=== PATIENT | female | born 2000 | race Caucasian/White ===

== ENCOUNTER 2022-03-30 07:03 | Emergency (ER) | payer OTHER, SELFPAY ==
[2022-03-30 07:04] VITALS: BP 109/61; PULSE 70; RESP 18; TEMP 36; O2SAT 100; BMI 20.9
[2022-03-30] MEDS: Ondansetron 4 MG/2 ML Vial IV (07:41)
--- NOTE | 2022-03-30 07:41 | EX.ED.DYSGE1 ---
HPI History of Present Illness Chief Complaint: Flank Pain Informant: patient and spouse/S.O. Narrative Narrative: 21-year-old female G1, P0 at approximately 13 weeks presenting with left flank pain. Patient notes that she developed some pain yesterday but that it went away. She notes that he returned today in the same spot which is left flank and left middle quadrant. She notes associated nausea and vomiting. She notes no position of comfort. Nothing seems to make it better or worse. She notes no urinary symptoms. No diarrhea. No fevers. She is worried she may have a kidney stone but she has never had 1. She states that the is confirmed intrauterine based on ultrasound. PFSH PFSH Medical History no medical history Home Medications [id number] 1 mg tablet 1 tab PO DAILY 03/30/22 [History Last Taken Unknown] Allergy/AdvReac Type Severity Reaction Status Date / Time No Known Allergies Allergy Verified 03/22/17 09:35 Social History (Updated 03/30/22 @ 07:[address] Sae Farmer, DO) Smoking Status: Never smoker substance use type: does not use ROS ROS ED Constitutional Constitutional ED: Denies chills or weight loss Eyes Eyes: Denies change in vision or diplopia ENT ENT ED: Denies ear pain, rhinorrhea or sore throat Cardiovascular Cardiovascular: Denies chest pain, orthopnea, palpitations or racing heartbeat Respiratory/Chest Respiratory/Chest: Denies cough, dyspnea or orthopnea Gastrointestinal Gastrointestinal: Reports abdominal pain, nausea and vomiting; Denies diarrhea Genitourinary Genitourinary ED: Denies dysuria, hematuria or urinary frequency Musculoskeletal Musculoskeletal: Reports back pain; Denies arthralgias or myalgias Integumentary Denies abscess or rash Neurologic Neurologic: Denies headache(s) or weakness Psychiatric Psychiatric: Denies anxiety, depression, suicidal ideation or suicidal thoughts Endocrine Endocrinology: Denies polydipsia, polyphagia or polyuria Allergic/Immunologic Allergic/Immunologic ED: Denies mouth swelling, tongue swelling or urticaria EXAM Physical Exam Narrative Exam Narrative: Patient appears uncomfortable. Lying on her right side of the head the foot of the bed. Const Vital Signs: 03/30/22 07:04 03/30/22 07:08 Temperature 96.8 F L Temperature Source Oral Pulse Rate 70 Respiratory Rate 18 Respiratory Pattern Normal Blood Pressure 109/61 Blood Pressure Mean 77 Pulse Ox 100 Oxygen Delivery Method Room Air Positive well nourished and well developed General Appearance ED: well developed HEENT Reports normocephalic, head/scalp atraumatic and moist mucous membranes Eyes PERRL and EOMs intact bilaterally Neck no lymphadenopathy, supple and no JVD Resp normal respiratory effort and clear to auscultation bilaterally Cardio regular rate, regular rhythm and no murmurs GI normal to inspection, nondistended, normoactive bowel sounds and non-tender Palpation: soft Back/Spine no CVA tenderness and normal ROM Extremity normal to inspection General Extremety ED: Negative for edema General Extremity: Negative for edema Neuro oriented x3 and CN's II-XII intact bilaterally Sensorium / Orientation: alert Motor Exam: strength 5/5 throughout Psych mental status grossly normal Mood & Affect: Negative for depressed or tearful Skin no rashes or lesions noted and no wounds MDM MDM MDM Narrative Medical decision making narrative: Basic blood work showed a white count 7.8 hemoglobin 12.7. BMP is negative. Urinalysis 1025 red cells 5-10 white cells 2+ bacteria negative nitrates positive leukocyte Estrace. CT of the abdomen pelvis was negative for ureterolithiasis. Were. Zofran were given and the patient feels improved on repeat examination. I will write for the patient have some Macrobid we will do a urine culture. Recommend CLAIM APPROVER follow-up Lab Data Attestation: I reviewed the patient's lab results. Labs: Laboratory Results - last 24 hr 03/30/22 03/30/22 03/30/22 07:30 07:30 08:20 WBC 7.8 RBC 4.10 L Hgb 12.7 Hct 37.8 MCV 92.2 MCH 31.0 MCHC 33.6 RDW Std Deviation 41.5 RDW Coeff of Mariano 12.6 Plt Count 246 MPV 10.3 Immature Gran % (Auto) 0.300 Neut % (Auto) 62.7 Lymph % (Auto) 29.7 Greene % (Auto) 5.9 Eos % (Auto) 1.3 Baso % (Auto) 0.1 Absolute Neuts (auto) 4.9 Absolute Lymphs (auto) 2.31 Nucleated RBC % 0 Sodium 138 Potassium 3.6 Chloride 108 H Carbon Dioxide 22.0 Anion Gap 8 BUN 6 L Creatinine 0.61 Estim Creat Clear Calc 114.41 Est GFR (MDRD) Af Amer 157 Est GFR (MDRD) Non-Af 130 BUN/Creatinine Ratio 9.9 L Glucose 105 Calcium 9.1 Urine Color Yellow Urine Clarity Clear Urine pH 6.5 Ur Specific Cardwell 1.020 Urine Protein 15 H Urine Glucose (UA) Normal Urine Ketones 5 H Urine Occult Blood 250 H Urine Nitrite Negative Urine Bilirubin Negative Urine Urobilinogen Normal Ur Leukocyte Esterase 25 H Urine RBC 10-25 SEEN Urine WBC 5-10 SEEN Ur Squamous Epith Cells 0-5 SEEN Urine Bacteria 2+ Urine Mucus 0 SEEN Radiography Diagnostic Testing: Clinical Impression(s) from Imaging Studies Abdomen/Pelvis CT 03/30/22 09:04 IMPRESSION: Right renal stone. No hydronephrosis. Multiple gallstones. No biliary dilatation. Intrauterine gestation. Electronically Signed: Parth Cleveland MD at 9:36 EST , Discharge Plan Triage Chief Complaint: Flank Pain ED Provider: Sae Farmer Dx/Rx/DC Orders Prescriptions: No Action 1 mg Tablet 1 tab PO DAILY Primary Care Provider: Sheila Tejada Referrals: Sheila Tejada MD [Primary Care Provider] -
[2022-03-30] MEDS: Morphine 4 MG/ML Syringe IV (07:42)
[2022-03-30 07:54] LABS: Absolute Lymphocyte Count 2.31 X10^3/uL (0.83-4.51); Absolute Neutrophil Count 4.9 X10^3/uL (2.0-7.7); Basophil# 0.01 X10^3/uL; Basophil% 0.1 % (0-1); Eosinophils% 1.3 % (0-5); Hematocrit 37.8 % (37-47); Hemoglobin 12.7 g/dL (12.0-15.0); Lymphocyte # 2.31 X10^3/ul (0.83-4.51); Lymphocyte % 29.7 % (19-41); Mean Corp Hgb Conc 33.6 g/dL (32-36); Mean Corpuscular Volume 92.2 fL (81-99); Mean Platelet Vol. 10.3 fl (6.2-12.0); Monocyte# 0.46 X10^3/uL; Monocyte% 5.9 % (0-10); NRBC Flagged by Analyzer 0 % (0-5); Neutrophil # 4.88 X10^3/uL (2.7-7.7); Neutrophil % 62.7 % (47-70); Platelet Count 246 K/mm3 (150-450); RBC Distribution Width CV 12.6 % (11.6-14.6); RBC Distribution Width SD 41.5 fl (35.1-43.9); White Blood Count 7.8 K/mm3 (4.4-11.0)
[2022-03-30 08:08] LABS: Anion Gap 8 (5-15); BUN 6 mg/dL (7-18); BUN/Creat Ratio 9.9 RATIO (10-20); Calcium,Total 9.1 mg/dL (8.5-10.1); Chloride 108 mmol/L (98-107); Creatinine, Serum 0.61 mg/dL (0.55-1.02); EST Glomerular Filtration Rate 130 mL/min (>60); Est Glom Filt Rate - Afr Amer 157 mL/min (>60); Estimated Creatinine Clearance 114.41 ml/min; Glucose 105 mg/dL (74-106); Potassium 3.6 mmol/L (3.5-5.1); Sodium Level 138 mmol/L (136-145)
[2022-03-30 08:26] LABS: Mucous, Urine 0 SEEN /hpf (<or=2+)
[2022-03-30 08:28] LABS: Color, Urine Yellow (Yellow); Glucose, Dipstick Normal (Normal); Ketone-Dipstick 5 mg/dl (Negative); Leukocyte Esterase-Dipstick 25 /ul (Negative); Nitrite-Dipstick Negative (Negative); Occult Blood-Urine 250 /ul (Negative); Protein-Dipstick 15 mg/dl (Negative); Urine Bilirubin Dipstick Negative (Negative); Urine Clarity Clear (Clear); Urine Urobilinogen Normal (Normal); Urine pH 6.5 (5.0 - 8.0)
[2022-03-30 08:35] LABS: Bacteria 2+ /hpf (None Seen); Red Blood Cells-Urine 10-25 SEEN /hpf (0-5); Squamous Epithelial Cells - UA 0-5 SEEN /hpf (5-10); White Blood Cells 5-10 SEEN /hpf (0-5)
--- NOTE | 2022-03-30 09:04 | CT_ITS ---
STUDY: CT ABDOMEN AND PELVIS WITHOUT CONTRAST REASON FOR EXAM: Female, 21 years old. Left flank pain + ?stone RADIATION DOSAGE (If Supplied By Facility): CTDIvol = ( 6.07 ) mGy, DLP = ( 285.21 ) mGycm TECHNIQUE: Transaxial images were obtained from the dome of the diaphragm to the symphysis pubis without oral contrast, and without intravenous contrast. Sagittal and coronal images were reconstructed. Individualized dose optimization techniques were used for this CT. COMPARISON: February 24, 2015 FINDINGS: The visualized lung bases are unremarkable. The visualized portions of the heart are within normal limits. Normal liver. There are multiple gallstones. Normal spleen. Normal pancreas. Normal bilateral adrenal glands. There is 0.2 cm stone of the right kidney. Normal left kidney. Normal visualized stomach. Normal small intestine. Normal colon. The appendix is visualized and appears normal. Normal abdominal aorta. Normal inferior vena cava. Normal retroperitoneum. Normal urinary bladder. There is intrauterine gestation. There is trace free fluid in the pelvis. There are small pelvic calcifications compatible with phleboliths. Normal abdominal wall. Normal osseous structures. CT/Abdomen/Pelvis without Cont IMPRESSION: Right renal stone. No hydronephrosis. Multiple gallstones. No biliary dilatation. Intrauterine gestation. Electronically Signed: Parth Cleveland MD at 9:36 EST ,
== END 2022-03-30 10:43 | disposition home or self-care (01) ==
PROVIDERS: Emergency Provider Emergency Medicine; PCP Pediatrics; Visit Provider Emergency Medicine
DX: O26.891 Other specified pregnancy related conditions, first trimester (principal); O21.9 Vomiting of pregnancy, unspecified; R10.9 Unspecified abdominal pain; Z3A.13 13 weeks gestation of pregnancy
CPT/HCPCS: 74176; 80048; 81001; 85025; 87086; 96374; 96375; 99283; A4216; J2405

== ENCOUNTER 2022-09-18 19:05 | Inpatient (IN) | payer OTHER, SELFPAY ==
[2022-09-18 19:30] VITALS: BMI 26.2
[2022-09-18 20:26] VITALS: TEMP 37.4
[2022-09-18 20:27] VITALS: BP 105/58; PULSE 90; O2SAT 98
[2022-09-18] MEDS: Lactated Ringers 1,000 ML 100 ML IV (20:30)
[2022-09-18 20:46] LABS: Absolute Lymphocyte Count 1.69 X10^3/uL (0.83-4.51); Absolute Neutrophil Count 4.6 X10^3/uL (2.0-7.7); Basophil# 0.02 X10^3/uL; Basophil% 0.3 % (0-1); Eosinophil# 0.11 X10^3/uL; Eosinophils% 1.6 % (0-5); Hematocrit 31.4 % (37-47); Hemoglobin 10.1 g/dL (12.0-15.0); Lymphocyte # 1.69 X10^3/ul (0.83-4.51); Lymphocyte % 23.8 % (19-41); Mean Corp Hgb Conc 32.2 g/dL (32-36); Mean Corpuscular Hgb 29.9 pg (27.0-32.0); Mean Corpuscular Volume 92.9 fL (81-99); Mean Platelet Vol. 11.7 fl (6.2-12.0); Monocyte# 0.64 X10^3/uL; NRBC Flagged by Analyzer 0 % (0-5); Neutrophil # 4.61 X10^3/uL (2.7-7.7); Platelet Count 160 K/mm3 (150-450); RBC Distribution Width CV 12.8 % (11.6-14.6); RBC Distribution Width SD 43.7 fl (35.1-43.9); Red Blood Count 3.38 M/mm3 (4.2-5.4); White Blood Count 7.1 K/mm3 (4.4-11.0)
[2022-09-18] MEDS: miSOPROStol 25 MCG TABLET PO (20:46)
--- NOTE | 2022-09-18 21:24 | PCM.HP.OB ---
HPI - General General Date of Admission: 09/18/22 HPI Narrative ALEXEY PURVIS, is a 22 F at 38.1 weeks gestation who presents for scheduled induction of labor for growth restriction. Maternal Data Information LUCILLE Calculator Estimated Delivery Date Method Current WG Current Estimate 10/01/22 Manual 38w 1d PFSH PFSH Medical History no medical history Home Medications [id number] 1 mg tablet 1 tab PO DAILY Check with primary doctor 03/30/22 [History Last Taken Unknown] Allergy/AdvReac Type Severity Reaction Status Date / Time No Known Allergies Allergy Verified 09/18/22 19:46 Family History Father Cancer Grandfather No problems noted. Grandmother Cancer Grandfather Cancer Surgical History History of surgery Social History Smoking Status: Never smoker substance use type: does not use History Elective abortions Hx Para 0 Spontaneous abortions Hx # Term Pregnancies Ectopic pregnancies Hx # Pregnancies Multiple births # of living children NST FHR Rate Baby A Baseline: 140 Variability:: Moderate Accelerations:: 15 x 15 Decelerations:: None NST Reactive:: Yes FHR Category:: Category I Uterine Activity:: Irritability ROS Eyes Eyes: Denies blurry vision, change in vision or spots in vision ENT HEENT: Denies dizziness or headache(s) Cardiovascular Cardiovascular: Denies abdominal pain, chest pain or dyspnea Respiratory/Chest Respiratory/Chest: Denies cough, dyspnea, shortness of breath at rest or shortness of breath with exertion Gastrointestinal Gastrointestinal: Denies abdominal pain, diarrhea or vomiting Genitourinary Genitourinary: Denies change in urinary stream, difficulty urinating or dysuria Musculoskeletal Musculoskeletal: Reports none Integumentary Integumentary: Denies rash Neurologic Neurologic: Denies dizziness, headache(s), memory loss or weakness Psychiatric Psychiatric: Reports none Vital Signs Vital Signs Vital Signs: 09/18/22 20:27 09/18/22 20:27 09/18/22 20:27 Temperature Temperature Source Pulse Rate 90 Blood Pressure 105/58 L BP Systolic 105 BP Diastolic 58 Pulse Ox 98 09/18/22 20:26 09/18/22 20:26 Temperature 99.3 F H Temperature Source Oral Pulse Rate Blood Pressure BP Systolic BP Diastolic Pulse Ox Weight Weight: 148 lb 0.2 oz Body Mass Index (BMI) 26.2 Physical Exam Const alert, oriented x3 and no apparent distress General Appearance: cooperative Orientation / Consciousness: awake Exam Limitations: no limitations HEENT normocephalic Head and Scalp: normal to inspection Eyes General Eye: normal appearance of both eyes Neck full ROM and no lymphadenopathy Lymph Lymphatic: no lymphadenopathy noted Chest inspection of chest normal Resp normal respiratory effort, normal air movement and clear to auscultation bilaterally Effort and Inspection: able to speak in complete sentences and symmetric chest movement Cardio regular rate and regular rhythm GI normal to inspection, nondistended, normoactive bowel sounds Manual OB Exam: presentation cephalic Back/Spine normal ROM Extremity full ROM and no calf tenderness Skin no rashes or lesions noted General Skin Exam: no breakdown Neuro oriented x3 and CN's II-XII intact bilaterally Psych mental status grossly normal and thought process normal Labs Labs Labs: Blood Type Pending Antibody Screen Pending Hct 31.4 % (37-47) L Hgb 10.1 g/dL (12.0-15.0) L Syphilis Total Ab Pending GBS negative Assessment & Plan (1) affected by growth restriction: COMMENT: EFW 6% (2) 38 weeks gestation of : (3) Primigravida: (4) Exercise-induced asthma: PLAN: Plan Admit to labor and delivery Routine labs Start IV and run fluids per orders GBS negative CE- FT Cytotec 25 mcg PO every 4 hours x 6 doses maximum Anticipate placement of zacarias bulb in AM Dr. Dyson aware of induction and is collaborating physician
[2022-09-18 21:25] LABS: Syphilis Antibodies Non-reactive
[2022-09-19] VITALS (48 sets, daily range): BP systolic 97–177; BP diastolic 50–116; PULSE 66–120; TEMP 36–37.3; O2SAT 98–100
[2022-09-19] MEDS: miSOPROStol 25 MCG TABLET PO ×2 (00:46→04:48)
[2022-09-19] MEDS: Lactated Ringers 1,000 ML 100 ML IV (04:43)
[2022-09-19] MEDS: 0.9% Normal Saline Single 100 ML IV.SOLN. INTRA-UTER (07:10)
--- NOTE | 2022-09-19 07:29 | PCM.PN.BLA ---
Progress Note Patient for induction of labor at 38-2/7 weeks due to intrauterine growth restriction. Risk benefits and alternatives to Ramsey placement for cervical ripening reviewed with the patient, her questions were answered to her satisfaction she desires to proceed. 24 Sinhala Ramsey placed into the internal cervical os over a Ramsey catheter guide in the usual sterile fashion. Cervix was 1/70/-2 and medium consistency and midposition. heart tones are category 1. Contractions are very irregular and patient does not appreciate them. The balloon was inflated to 30 cc and placement over the internal os was confirmed. Patient and fetus tolerated the procedure well. Start Pitocin 4 hours after last Cytotec.
[2022-09-19] MEDS: Ondansetron 4 MG/2 ML Vial IV (08:14)
[2022-09-19] MEDS: Oxytocin 15 Units/NS 250ml 15 UNITS/250 ML IV.SOLN 2 UNITS IV (10:26)
[2022-09-19] MEDS: fentaNYL 100 MCG/2 ML Ampul IV (12:23)
[2022-09-19] MEDS: LACTATED RINGERS 500 ML 999 ML IV (13:31)
[2022-09-19] MEDS: Lactated Ringers 1,000 ML 200 ML IV ×2 (13:55→19:47)
[2022-09-19] MEDS: fentaNYL-bupivacaine (epidural) 100 ML BAG EPIDURAL ×2 (14:02→18:15)
--- NOTE | 2022-09-19 23:46 | EX.PCM.OBRPT ---
Assessment & Plan (1) Vaginal delivery: (2) Lactating mother: Maternal Data Information LUCILLE Calculator Estimated Delivery Date Method Current WG Current Estimate 10/01/22 Manual 38w 2d Vaginal Delivery Maternal Presentation Maternal Presentation: Medically Indicated Induction Type of Induction: Pitocin, Ramsey Bulb and Cytotec Medical Reason for Induction: - (IUGR) Operative Information Date of Procedure: 09/19/22 Pre-Operative Diagnosis: Induction of labor Post-Operative Diagnosis: Surgery / Procedure Performed: Spontaneous Vaginal Delivery Type of Anesthesia: Epidural Estimated Blood Loss: 200ml Time of Delivery: 23:33 Findings Description of Procedure: Progressed to complete with urge to push. Epidural for pain management. of viable female infant over intact perineum. APGARS 8,9 respectively. head delivered with body immediately forthcoming. Placed on maternal abdomen, strong cry. Mouth and nares suctioned for secretions. Pitocin started for active 3rd stage management. Cord doubly clamped and cut by FOB after pulsations ceased, delayed cord clamping. Placenta delivered intact via shelton, 3 vessel cord intact. Perineum inspected and intact. Fundus firm and hemostasis achieved. EBL 200ml. Mom and baby stable, planning to breastfeed. Family bonding well. notified of delivery. Presentation: Vertex and BRIAN Amniotic Membrane Rupture Type: Artificial Amniotic Fluid Description: Clear Placental Delivery Description: Expressed Placenta Disposition: [facility] Cord Vessel Description: 3 Vessels Cord Entanglement: None A Gender: Female (1 minute): 8 (5 minute): 9 Delayed Cord Clamping: Yes Post Vaginal Delivery Medications Given After Delivery: IV Pitocin Episiotomy Description: None Laceration: None Complication Complications: None
[2022-09-19] MEDS: Oxytocin 15 Units/NS 250ml 15 UNITS/250 ML IV.SOLN 83 UNITS IV (23:58)
[2022-09-20] VITALS (13 sets, daily range): BP systolic 93–123; BP diastolic 42–59; PULSE 74–106; RESP 16–18; TEMP 36.3–37.1; O2SAT 96
[2022-09-20] MEDS: Ibuprofen 600 MG Tablet PO ×2 (03:11→16:38)
[2022-09-20 06:34] LABS: Hematocrit 29.7 % (37-47); Hemoglobin 9.7 g/dL (12.0-15.0); Mean Corp Hgb Conc 32.7 g/dL (32-36); Mean Corpuscular Hgb 30.2 pg (27.0-32.0); Mean Corpuscular Volume 92.5 fL (81-99); Mean Platelet Vol. 11.5 fl (6.2-12.0); Platelet Count 150 K/mm3 (150-450); RBC Distribution Width CV 12.7 % (11.6-14.6); RBC Distribution Width SD 43.4 fl (35.1-43.9); Red Blood Count 3.21 M/mm3 (4.2-5.4); White Blood Count 15.6 K/mm3 (4.4-11.0)
--- NOTE | 2022-09-20 12:57 | PN.OBGYN_ITS ---
Subjective Subjective Doing well per patient and nursing staff. Ambulating and taking PO without difficulty. Voiding and passing flatus. Pain controlled. , services for assistance. Denies headache, visual changes, chest pain, shortness of breath, leg pain or increased bleeding. Lochia normal. Objective Data Objective Data Vital Signs: Vital Signs Temp Pulse Resp BP Pulse Ox O2 Del Method 97.7 F L 84 16 93/46 L 99 Room Air 09/20/22 08:01 09/20/22 08:01 09/20/22 08:01 09/20/22 08:01 09/19/22 14:23 09/20/22 08:01 Oxygen Delivery Method Room Air Weight: 148 lb 0.2 oz Body Mass Index (BMI) 26.2 Intake & Output: Intake and Output for Last 24 Hours 09/18/22 09/19/22 09/20/22 23:59 23:59 23:59 Intake Total 4423.33 / 4423.33 250 / 250 Output Total 1100 / 1100 1500 / 1500 Balance 3323.33 / 3323.33 -1250 / -1250 Lab / Micro Data Result Diagrams: 09/20/22 06:24 Labs: Laboratory Results - last 24 hr 09/20/22 06:24: WBC 15.6 H, RBC 3.21 L, Hgb 9.7 L, Hct 29.7 L, MCV 92.5, MCH 30.2, MCHC 32.7, RDW Std Deviation 43.4, RDW Coeff of Mariano 12.7, Plt Count 150, MPV 11.5 ROS Constitutional Constitutional: Reports systems reviewed and no addt'l complaints, except as documented; Denies headache(s) Eyes Eyes: Denies acute decrease in peripheral vision, blurry vision or change in vision ENT HEENT: Reports systems reviewed and no addt'l complaints, except as documented Cardiovascular Cardiovascular: Denies chest pain or dizziness Respiratory/Chest Respiratory/Chest: Denies cough, dyspnea, dyspnea on exertion, shortness of breath at rest or shortness of breath with exertion Gastrointestinal Gastrointestinal: Denies abdominal pain, diarrhea, nausea or vomiting Genitourinary Genitourinary: Denies abdominal discomfort Musculoskeletal Musculoskeletal: Denies limited range of motion Integumentary Integumentary: Reports systems reviewed and no addt'l complaints, except as documented Neurologic Neurologic: Reports systems reviewed and no addt'l complaints, except as documented Psychiatric Psychiatric: Reports systems reviewed and no addt'l complaints, except as docu mented Endocrine Endocrinology: Reports systems reviewed and no addt'l complaints, except as documented Hematologic/Lymphatic Hematologic/Lymphatic: Reports systems reviewed and no addt'l complaints, except as documented Allergic/Immunologic Allergic/Immunologic: Reports systems reviewed and no addt'l complaints, except as documented Physical Exam Const alert and oriented x3 General Appearance: cooperative Orientation / Consciousness: awake, oriented to person, oriented to place and oriented to time Exam Limitations: no limitations HEENT normocephalic Head and Scalp: normal to inspection, normocephalic and atraumatic Face and Sinus: normal facial exam Eyes General Eye: normal appearance of both eyes Neck full ROM Chest Chest: symmetrical chest wall rise Resp normal respiratory effort and normal air movement Auscultation: clear to auscultation bilaterally Cardio regular rate, regular rhythm, S1 normal heart sound, S2 normal heart sound, no murmurs, no rub, no gallops and no clicks GI normal to inspection, nondistended, normoactive bowel sounds and non-tender appearance of the vagina normal Bladder / Kidney Exam: no CVA tenderness Back/Spine normal ROM Extremity normal to inspection and full ROM Skin no rashes or lesions noted Neuro oriented x3, CN's II-XII intact bilaterally and moves all extremities Sensorium / Orientation: awake, alert and oriented to person Motor Exam: clonus absent Deep Tendon Reflexes: Rt Patellar (L4): 2+ and Lt Patellar (L4): 2+ Assessment & Plan (1) Lactating mother: (2) Vaginal delivery: PLAN: Plan 1) Routine PP care, PPD#1 2) Vitals stable 3) Hgb stable, asymptomatic 4) Pain controlled 5) D/C home tomorrow 6) Follow up in 2 weeks and 6 weeks
--- NOTE | 2022-09-20 12:58 | PCM.DC.SUM ---
Providers Date of Admission: 09/18/22 Reason For Visit: VAGINAL DELILVERY Diagnosis Discharge Diagnosis (1) Lactating mother: Status: Acute Code(s): Z39.1 - Encounter for care and examination of lactating mother (2) Vaginal delivery: Status: Acute Code(s): O80 - Encounter for full-term uncomplicated delivery Plan 1) Routine PP care, PPD#1 2) Vitals stable 3) Hgb stable, asymptomatic 4) Pain controlled 5) D/C home today 6) Follow up in 2 weeks and 6 weeks Medications at Discharge Home Medications [id number] 1 mg tablet 1 tab PO DAILY Check with primary doctor 03/30/22 acetaminophen 500 mg tablet 1,000 mg PO Q6H PRN PRN Pain 1-10 Or Fever #0 tabs 09/21/22 ibuprofen 600 mg tablet 600 mg PO Q6H PRN PRN Pain Score 1-3 #0 tabs 09/21/22 Weight / BMI Weight Weight: 148 lb 0.2 oz Body Mass Index (BMI) 26.2 ABG / Lab / Microbiology Data Result Diagrams: 09/20/22 06:24 Laboratory: Laboratory Results - last 24 hr 09/20/22 06:24: WBC 15.6 H, RBC 3.21 L, Hgb 9.7 L, Hct 29.7 L, MCV 92.5, MCH 30.2, MCHC 32.7, RDW Std Deviation 43.4, RDW Coeff of Mariano 12.7, Plt Count 150, MPV 11.5 Meaningful Use Info Meaningful Use Diagnoses (Choose all that apply): None applicable Discharge Plan Admission Admit Date/Time: 09/18/22 19:05 Primary Reason for Your Visit: Vaginal delivery Attending Provider: Luann Kaplan Discharge Orders/Prescriptions Prescriptions: New acetaminophen 500 mg Tablet 1,000 mg PO Q6H PRN PRN (Reason: Pain 1-10 Or Fever) Qty: 0 0RF ibuprofen 600 mg Tablet 600 mg PO Q6H PRN PRN (Reason: Pain Score 1-3) Qty: 0 0RF Continued [id number] 1 mg Tablet 1 tab PO DAILY Referrals / Follow Up: Luann Kaplan CNM [Med Staff - Adv Practice Prof] - (Follow up in 2 weeks for virtual visit and 6 weeks for visit) iLliana Pollard CNM [Med Staff - Adv Practice Prof] - Disposition Disposition (needs filled in before D/C Order can be placed): Home, Self Care
[2022-09-21 03:00] VITALS: BP 111/64; PULSE 78; RESP 16; TEMP 36.5
[2022-09-21] MEDS: Ibuprofen 600 MG Tablet PO (09:09)
[2022-09-21 09:13] VITALS: BP 106/59; PULSE 79; RESP 16; TEMP 36.6
--- NOTE | 2022-09-21 10:44 | PCM.PN.OB ---
Subjective Subjective Doing well per patient and nursing staff. Ambulating and taking PO without difficulty. Voiding and passing flatus. Pain controlled. , services for assistance. Denies headache, visual changes, chest pain, shortness of breath, leg pain or increased bleeding. Lochia normal. Objective Data Objective Data Vital Signs: Vital Signs Temp Pulse Resp BP Pulse Ox O2 Del Method 97.9 F 79 16 106/59 L 96 Room Air 09/21/22 09:13 09/21/22 09:13 09/21/22 09:13 09/21/22 09:13 09/20/22 20:54 09/20/22 20:54 Oxygen Delivery Method Room Air Weight: 148 lb 0.2 oz Body Mass Index (BMI) 26.2 Intake & Output: Intake and Output for Last 24 Hours 09/19/22 09/20/22 09/21/22 23:59 23:59 23:59 Intake Total 4423.33 / 4423.33 250 / 250 Output Total 1100 / 1100 1500 / 1500 Balance 3323.33 / 3323.33 -1250 / -1250 Lab / Micro Data Result Diagrams: 09/20/22 06:24 Physical Exam Const alert and oriented x3 General Appearance: cooperative Orientation / Consciousness: awake, oriented to person, oriented to place and oriented to time Exam Limitations: no limitations HEENT normocephalic Head and Scalp: normal to inspection, normocephalic and atraumatic Face and Sinus: normal facial exam Eyes General Eye: normal appearance of both eyes Neck full ROM Chest Chest: symmetrical chest wall rise Resp normal respiratory effort and normal air movement Auscultation: clear to auscultation bilaterally Cardio regular rate, regular rhythm, S1 normal heart sound, S2 normal heart sound, no murmurs, no rub, no gallops and no clicks GI normal to inspection, nondistended, normoactive bowel sounds and non-tender appearance of the vagina normal Bladder / Kidney Exam: no CVA tenderness Back/Spine normal ROM Extremity normal to inspection and full ROM Skin no rashes or lesions noted Neuro oriented x3, CN's II-XII intact bilaterally and moves all extremities Sensorium / Orientation: awake, alert and oriented to person Motor Exam: clonus absent Deep Tendon Reflexes: Rt Patellar (L4): 2+ and Lt Patellar (L4): 2+ Assessment & Plan (1) Vaginal delivery: (2) Lactating mother: PLAN: Plan 1) PPD #2 2) , assistance from . 3) Vitals stable 4) Pain controlled 5) Follow up in 2 weeks and 6 weeks PP 6) D/C home
[2022-09-21 15:05] VITALS: BP 96/54; PULSE 70; RESP 16; TEMP 36.3
[2022-09-21 19:33] VITALS: BP 115/66; PULSE 72; RESP 16; TEMP 36.8
[2022-09-22 02:10] VITALS: BP 107/55; PULSE 68; RESP 16; TEMP 36.6
[2022-09-22] MEDS: Acetaminophen 500 MG Tablet 1000 MG PO (02:21)
[2022-09-22 08:34] VITALS: BP 106/63; PULSE 67; RESP 16; TEMP 36.3
== END 2022-09-22 11:15 | disposition home or self-care (01) | DRG 807 ==
PROVIDERS: Advanced Practice Midwife; Admitting Provider Advanced Practice Midwife; Referring Provider Advanced Practice Midwife; Visit Provider Advanced Practice Midwife
DX: O36.5930 Maternal care for other known or suspected poor fetal growth, third trimester, not applicable or unspecified (principal); Z37.0 Single live birth; J45.990 Exercise induced bronchospasm; O99.52 Diseases of the respiratory system complicating childbirth; Z3A.38 38 weeks gestation of pregnancy
CPT/HCPCS: 59025; 59050; 85025; 85027; 86780; 86850; 86900; 86901; 99221; J7120; G0378; J2405

== ENCOUNTER 2022-10-29 16:40 | Emergency (ER) | payer OTHER, SELFPAY ==
[2022-10-29 16:42] VITALS: BP 124/78; PULSE 78; RESP 16; TEMP 36.4; O2SAT 98; BMI 22.2
--- NOTE | 2022-10-29 17:22 | EX.ED.DYSGE1 ---
HPI History of Present Illness Chief Complaint: General Illness Informant: patient Onset/Context/Timing Onset: Today Narrative Narrative: Patient presents with breast tenderness and fever. She is currently 6 weeks and is breast-feeding. She states she woke up this morning with fever, body aches, headache, light sensitivity. She reports breast tenderness. She has been able to breast-feed but continues to have tenderness. She reports very minimal if any redness to her breast. She did have a vaginal delivery. No abnormal discharge. She states she still does not have good control of her bladder since the . [facility] Medical History Care and examination of lactating mother Home Medications [id number]-[id number] 1 mg tablet 1 tab PO DAILY Check with primary doctor 03/30/22 [History Last Taken Unknown] amoxicillin 875 mg-potassium clavulanate 125 mg tablet 1 tab PO BID #20 tabs 10/29/22 [Rx Last Taken Unknown] Allergy/AdvReac Type Severity Reaction Status Date / Time No Known Allergies Allergy Verified 09/18/22 19:46 Family History Father Cancer Grandfather No problems noted. Grandmother Cancer Grandfather Cancer Surgical History History of surgery Social History Smoking Status: Never smoker substance use type: does not use ROS ROS ED Constitutional Constitutional ED: Reports fever(s) Eyes Eyes: Reports other Details: Light sensitivity ; Denies discharge from eye(s) ENT ENT ED: Denies discharge from eye(s), rhinorrhea or sore throat Cardiovascular Cardiovascular: Reports other Details: Breast tenderness ; Denies chest pain or palpitations Respiratory/Chest Respiratory/Chest: Denies cough or dyspnea Gastrointestinal Gastrointestinal: Denies abdominal pain, diarrhea, nausea or vomiting Genitourinary Genitourinary ED: Denies dysuria Musculoskeletal Musculoskeletal: Denies back pain or extremity pain Integumentary Denies Abrasions or rash Neurologic Neurologic: Denies headache(s) or weakness Allergic/Immunologic Allergic/Immunologic ED: Denies lip swelling or urticaria EXAM Physical Exam Const Vital Signs: 10/29/22 16:42 10/29/22 17:39 10/29/22 18:00 Temperature 97.6 F L 100.5 F H Temperature Source Temporal Oral Pulse Rate 78 Respiratory Rate 16 Respiratory Effort Normal Non-Labored Respiratory Pattern Normal Blood Pressure 124/78 H Blood Pressure Mean 93 Pulse Ox 98 Oxygen Delivery Method Room Air Positive well nourished and well developed General Appearance ED: well developed HEENT Reports moist mucous membranes Eyes PERRL and EOMs intact bilaterally Neck no lymphadenopathy Neck Narrative: No meningismus. Chest Wall inspection of chest normal Chest Narrative: Breast exam: Mild diffuse tenderness of the right breast. Minimal erythema. Left breast exam reveals minimal to no tenderness and no erythema at this time. Resp normal respiratory effort and clear to auscultation bilaterally Cardio regular rate and regular rhythm GI non-tender Palpation: soft Extremity normal to inspection Neuro oriented x3 and no sensory deficits noted Motor Exam: strength 5/5 throughout Psych mental status grossly normal Skin no rashes or lesions noted MDM MDM MDM Narrative Medical decision making narrative: Temperature was checked orally the time of my exam. Her temperature is 100.2. Patient is given Tylenol. Lab work and cultures obtained. Swab for COVID and influenza ordered. Two-view chest x-ray obtained to evaluate for infiltrate. Lab Data Labs: Laboratory Results - last 24 hr 10/29/22 17:35 WBC 10.0 RBC 4.56 Hgb 13.5 Hct 41.1 MCV 90.1 MCH 29.6 MCHC 32.8 RDW Std Deviation 42.0 RDW Coeff of Mariano 12.6 Plt Count 182 MPV 10.3 Immature Gran % (Auto) 0.200 Neut % (Auto) 84.7 H Lymph % (Auto) 9.3 L [place] % (Auto) 5.4 Eos % (Auto) 0.2 Baso % (Auto) 0.2 Absolute Neuts (auto) 8.5 H Absolute Lymphs (auto) 0.93 Nucleated RBC % 0 Sodium 136 Potassium 3.9 Chloride 105 Carbon Dioxide 25.0 Anion Gap 6 BUN 9 Creatinine 1.00 Estim Creat Clear Calc 72.38 Est GFR (MDRD) Af Amer 88 Est GFR (MDRD) Non-Af 73 BUN/Creatinine Ratio 9.0 L Glucose 102 Calcium 9.3 Urine Color Yellow Urine Clarity Clear Urine pH 8.0 Ur Specific [place] 1.010 Urine Protein Negative Urine Glucose (UA) Normal Urine Ketones Negative Urine Occult Blood Negative Urine Nitrite Negative Urine Bilirubin Negative Urine Urobilinogen Normal Ur Leukocyte Esterase Negative Urine RBC 0 SEEN Urine WBC 0 SEEN Ur Squamous Epith Cells 0 SEEN Urine Bacteria 0 SEEN Urine Mucus 0 SEEN Radiography Diagnostic Testing: Clinical Impression(s) from Imaging Studies Chest X-Ray 10/29/22 17:45 IMPRESSION: Normal x-ray examination of the chest. Electronically Signed: Errol Goldsmith (Brooks), at 18:32 EDT , Treatment and Re-Evaluation :: CBC was normal white count at 10 with 84% neutrophils. Chemistry studies unremarkable. Urinalysis reveals no evidence of infection. Two-view chest x-ray per my interpretation reveals no evidence of infiltrate. Radiology interpretation reviewed and agrees. Swab for COVID and influenza is negative. Patient was given Tylenol here for fever along with IV fluids. At this time she will be treated with Augmentin for mastitis. Return instructions are provided. Discharge Plan Triage Chief Complaint: General Illness ED Provider: Kayce Go Dx/Rx/DC Orders Clinical Impression: Mastitis Instructions: ED Mastitis Prescriptions: New amoxicillin-pot clavulanate 875-125 mg tablet 1 tab PO BID Qty: 20 0RF No Action [id number]-[id number] 1 mg Tablet 1 tab PO DAILY Primary Care Provider: Care Physician,No Primary Referrals: Lilo Oliver MD [Med Staff - Active Staff] - 1 Week Care Physician,No Primary [Primary Care Provider] - Disposition Disposition: Home, Self Care
--- NOTE | 2022-10-29 17:45 | RAD_ITS ---
STUDY: X-RAY CHEST REASON FOR EXAM: Female, 22 years old. fever TECHNIQUE: PA and lateral views of the chest. COMPARISON: None. FINDINGS: The lungs are clear and expanded. There is no demonstrated pleural abnormality. Normal size heart. Normal mediastinum and randee. Normal visualized pulmonary arteries. Normal visualized aortic arch and descending thoracic aorta. Normal visualized thoracic spine. Normal visualized ribs, clavicles, and shoulders. There is no demonstrated abnormality of the visualized soft tissue structures of the upper abdomen. RAD/Chest PA and Lateral IMPRESSION: Normal x-ray examination of the chest. Electronically Signed: Errol Goldsmith ([place]oks), at 18:32 EDT ,
[2022-10-29 17:52] LABS: Bacteria 0 SEEN /hpf (None Seen); Mucous, Urine 0 SEEN /hpf (<or=2+); Red Blood Cells-Urine 0 SEEN /hpf (0-5); Squamous Epithelial Cells - UA 0 SEEN /hpf (5-10); White Blood Cells 0 SEEN /hpf (0-5)
[2022-10-29 17:54] LABS: Absolute Lymphocyte Count 0.93 X10^3/uL (0.83-4.51); Absolute Neutrophil Count 8.5 X10^3/uL (2.0-7.7); Basophil# 0.02 X10^3/uL; Basophil% 0.2 % (0-1); Eosinophil# 0.02 X10^3/uL; Eosinophils% 0.2 % (0-5); Hematocrit 41.1 % (37-47); Hemoglobin 13.5 g/dL (12.0-15.0); Lymphocyte # 0.93 X10^3/ul (0.83-4.51); Lymphocyte % 9.3 % (19-41); Mean Corp Hgb Conc 32.8 g/dL (32-36); Mean Corpuscular Hgb 29.6 pg (27.0-32.0); Mean Corpuscular Volume 90.1 fL (81-99); Mean Platelet Vol. 10.3 fl (6.2-12.0); Monocyte# 0.54 X10^3/uL; Monocyte% 5.4 % (0-10); NRBC Flagged by Analyzer 0 % (0-5); Neutrophil # 8.48 X10^3/uL (2.7-7.7); Neutrophil % 84.7 % (47-70); Platelet Count 182 K/mm3 (150-450); RBC Distribution Width CV 12.6 % (11.6-14.6); Red Blood Count 4.56 M/mm3 (4.2-5.4)
[2022-10-29] MEDS: Acetaminophen 500 MG Tablet 1000 MG PO (17:58)
[2022-10-29] MEDS: 0.9% Normal Saline 1,000 ML 1000 ML IV (17:58)
[2022-10-29 18:00] VITALS: TEMP 38.1
[2022-10-29 18:05] LABS: Color, Urine Yellow (Yellow); Glucose, Dipstick Normal (Normal); Ketone-Dipstick Negative (Negative); Leukocyte Esterase-Dipstick Negative /ul (Negative); Nitrite-Dipstick Negative (Negative); Occult Blood-Urine Negative /ul (Negative); Protein-Dipstick Negative (Negative); Urine Bilirubin Dipstick Negative (Negative); Urine Clarity Clear (Clear); Urine Urobilinogen Normal (Normal)
[2022-10-29 18:09] LABS: Anion Gap 6 (5-15); BUN 9 mg/dL (7-18); Calcium,Total 9.3 mg/dL (8.5-10.1); Chloride 105 mmol/L (98-107); EST Glomerular Filtration Rate 73 mL/min (>60); Est Glom Filt Rate - Afr Amer 88 mL/min (>60); Estimated Creatinine Clearance 72.38 ml/min; Glucose 102 mg/dL (74-106); Potassium 3.9 mmol/L (3.5-5.1); Sodium Level 136 mmol/L (136-145)
[2022-10-29] MEDS: Amox/Clavulanate 875 MG Tablet PO (19:08)
== END 2022-10-29 19:13 | disposition home or self-care (01) ==
PROVIDERS: Emergency Provider Emergency Medicine; Visit Provider Emergency Medicine
DX: N61.0 Mastitis without abscess (principal); R50.9 Fever, unspecified
CPT/HCPCS: 71046; 80048; 81001; 85025; 87040; 87086; 87088; 87428; 96360; 99282; J7030; A4216

== ENCOUNTER 2023-09-13 08:54 | Emergency (ER) | payer OTHER, SELFPAY ==
[2023-09-13 08:54] VITALS: BP 116/75; PULSE 78; RESP 16; TEMP 36.4; O2SAT 100; BMI 21.2
--- NOTE | 2023-09-13 09:14 | EX.ED.VIS.EY ---
HPI History of Present Illness Chief Complaint: Eye Problem Detail of Chief Complaint: Left eye pain Informant: patient Narrative Narrative: Patient presents with left eye pain that started yesterday evening. Patient states that she had worn her contacts for about 40 hours. [place] She took her contacts out and felt like there were razor blades in her eye. She went to urgent care today and was referred to the ER. She denies any trauma to her eye. She complains of photophobia and tearing. [facility] Medical History Care and examination of lactating mother Home Medications [id number]-qnc-Vl-FA 1 mg tablet 1 tab PO DAILY Check with primary doctor 03/30/22 [History Last Taken Unknown] amoxicillin 875 mg-potassium clavulanate 125 mg tablet 1 tab PO BID #20 tabs 10/29/22 [Rx Last Taken Unknown] hydrocodone-acetaminophen 5-325mg 5mg-325mg 1 tab PO Q4H PRN PRN Pain 2 days #10 TABLETS 09/13/23 [Rx Last Taken Unknown] moxifloxacin 0.5 % eye drops 1 drp LEFT EYE .qid 7 days #3 mL 09/13/23 [Rx Last Taken Unknown] Allergy/AdvReac Type Severity Reaction Status Date / Time No Known Allergies Allergy Verified 09/18/22 19:46 Family History Father Cancer Grandfather No problems noted. Grandmother Cancer Grandfather Cancer Surgical History History of surgery Social History Smoking Status: Never smoker substance use type: does not use ROS ROS ED Review of Systems ROS Unobtainable: other Constitutional Constitutional ED: Reports lethargy; Denies chills, fever(s), sweats or weight loss Eyes Eyes: Reports other Details: Left thigh pain and tearing, photophobia ; Denies blurry vision, change in vision or diplopia ENT ENT ED: Denies rhinorrhea or sore throat Cardiovascular Cardiovascular: Denies chest pain, orthopnea or racing heartbeat Respiratory/Chest Respiratory/Chest: Denies cough, dyspnea, dyspnea on exertion, orthopnea or sputum Gastrointestinal Gastrointestinal: Denies abdominal pain, diarrhea, nausea or vomiting Genitourinary Genitourinary ED: Denies dysuria, hematuria or urinary frequency Musculoskeletal Musculoskeletal: Denies arthralgias, back pain, myalgias or neck pain Integumentary Denies abscess, Abrasions or rash Neurologic Neurologic: Denies headache(s) or weakness Psychiatric Psychiatric: Denies anxiety, depression or suicidal thoughts Endocrine Endocrinology: Denies polydipsia, polyphagia or polyuria Hematologic/Lymphatic Hematologic/Lymphatic: Denies easy bleeding, easy bruising or lymphadenopathy Allergic/Immunologic Allergic/Immunologic ED: Denies mouth swelling, tongue swelling or urticaria EXAM Physical Exam Const Vital Signs: 09/13/23 08:54 Temperature 97.6 F L Temperature Source Temporal Pulse Rate 78 Respiratory Rate 16 Blood Pressure 116/75 Blood Pressure Mean 88 Pulse Ox 100 Oxygen Delivery Method Room Air Positive well nourished and well developed General Appearance ED: well developed and NAD HEENT Reports TM's clear and moist mucous membranes HEENT Narrative: Valuation of the left eye after instilling tetracaine notes that she has some subtle conjunctival erythema especially on the medial portion. Pupils equal react light bilaterally. Extraocular muscle movement is normal and painless. I stained the eye with fluorescein and did not appreciate any obvious corneal abrasions or ulcerations. normocephalic and atraumatic; Negative for trauma or tenderness Tympanic Membrane ED: Yes TM's clear Eyes PERRL and EOMs intact bilaterally General Eye ED: Negative for pale conjunctiva or scleral icterus Neck no lymphadenopathy, supple and no JVD General: Negative for tenderness Chest Wall inspection of chest normal and palpation of chest normal Chest: Negative for tenderness Resp normal respiratory effort and clear to auscultation bilaterally Effort and Inspection: Negative for respiratory distress or pain with movement Auscultation: Negative for rhonchi, wheezes or diminished lung sounds Cardio regular rate, regular rhythm, S1 normal heart sound, S2 normal heart sound and no murmurs Peripheral Pulses: pulses 2+ throughout GI normal to inspection, nondistended, normoactive bowel sounds, soft to palpation, non-tender, non-distended and no masses Back/Spine no CVA tenderness and no thoracic nor lumbar tenderness Extremity normal to inspection General Extremety ED: Negative for edema General Extremity: Negative for edema Neuro oriented x3, CN's II-XII intact bilaterally, no sensory deficits noted and gait normal Sensorium / Orientation: awake, alert, oriented to person, oriented to place and oriented to time Motor Exam: strength 5/5 throughout and strength abnormal Psych mental status grossly normal Skin no rashes or lesions noted and no wounds MDM MDM MDM Narrative Medical decision making narrative: Patient presents with left eye pain after taking her contacts out after having it in for about 40 hours. Clinically concern for corneal abrasion or iritis. Her exam is essentially unremarkable other than some mild conjunctival erythema to the medial aspect of the globe. Discussed case with Dr. Bertrand who is on for ophthalmology. I was asked to start patient on moxifloxacin 4 times a day and he can see her tomorrow morning at 8 AM. Patient advised to stay in a dark room. Avoid reading or watching television. Discharge Plan Triage Chief Complaint: Eye Problem ED Provider: Lori Victoria Dx/Rx/DC Orders Clinical Impression: Acute left eye pain Instructions: ED Corneal Abrasion, ED Pain, Acute, Uncertain Cause Prescriptions: New moxifloxacin 0.5 % drops 1 drp LEFT EYE .qid 7 Days Qty: 3 0RF hydrocodone-acetaminophen [hydrocodone-acetaminophen] 5-325 mg tablet 1 tab PO Q4H PRN PRN (Reason: Pain) 2 Days Qty: 10 0RF No Action [id number]-[id number]-FA 1 mg Tablet 1 tab PO DAILY amoxicillin-pot clavulanate 875-125 mg tablet 1 tab PO BID Qty: 20 0RF Primary Care Provider: Care Physician,No Primary Referrals: Zach Bertrand MD [Med Staff - Active Staff] - 09/14/23 8:00 am Care Physician,No Primary [Primary Care Provider] - Disposition Disposition: Home, Self Care
[2023-09-13] MEDS: Fluorescein 1 MG STRIP 1 STRIP LEFT EYE (09:20)
[2023-09-13] MEDS: Tetracaine 0.5% Ophthalmic Bottle 1 DRP LEFT EYE (09:20)
[2023-09-13 09:46] VITALS: BP 110/77; PULSE 74; RESP 16; TEMP 36.2; O2SAT 100
== END 2023-09-13 09:50 | disposition home or self-care (01) ==
PROVIDERS: Emergency Provider Emergency Medicine; Visit Provider Emergency Medicine
DX: H57.12 Ocular pain, left eye (principal); Z97.3 Presence of spectacles and contact lenses
CPT/HCPCS: 99283

== ENCOUNTER 2024-01-06 23:14 | Emergency (ER) | payer OTHER, SELFPAY ==
[2024-01-06 23:14] VITALS: BP 114/77; PULSE 109; RESP 18; TEMP 36.8; O2SAT 97
--- NOTE | 2024-01-06 23:23 | US_ITS ---
INDICATION: Vaginal bleeding COMPARISON: None. FINDINGS: 67 grayscale ultrasound images are obtained transabdominally demonstrate single live intrauterine measuring at 14 weeks +2 days average ultrasound age. This gives estimated date of delivery by current ultrasound of 07/04/2024. Additional cinematic series provided. heart rate is 162 bpm. Adequate amniotic fluid for gestational age. Small caudal placental subcentimeter venous wilburn. Anterior placenta is otherwise unremarkable for gestational age, inferior margin well clear of the internal cervical os. Uterine myometrium is unremarkable. Uterine cervix is long and closed measuring at least 3.1 cm in length. Bilateral ovaries are not visualized. No significant free fluid. US/OB Limited With Biometrics IMPRESSION: Single live intrauterine measuring at 14 weeks +2 days average ultrasound age. This gives estimated date of delivery by current ultrasound of 07/04/2024. Electronically Signed: Daniel Louis MD at 0:37 EDT ,
--- NOTE | 2024-01-06 23:24 | ED.VIS.FEGU ---
HPI HPI - Female History of Present Illness Chief Complaint: Vag Bld, Preg Narrative Narrative: 23-year-old female, G2, P1 at approximately 14 weeks and 3 days gestation presents with vaginal bleeding that began this evening. She states that she went to the bathroom prior to going to bed, and passed dark red blood with clots. She denies any vaginal pain or pressure, no pelvic pain/cramping. She last saw her OPTOMECHANICAL ENGINEER in [facility] 2 weeks ago where they performed an ultrasound. She is unsure of her blood type. She denies any exacerbating or alleviating factors, but thinks that the bleeding has lightened up. This is the first time she experienced bleeding with this , and she did not have bleeding with her prior . [facility] Medical History Care and examination of lactating mother Home Medications ?Medication ?Instructions ?Recorded ?Last Taken ?Type hpnisxuf-axi-[id number]-FA 1 mg 1 tab PO DAILY Check with primary 03/30/22 Unknown History tablet doctor Allergy/AdvReac Type Severity Reaction Status Date / Time No Known Allergies Allergy Verified 01/06/24 23:14 Family History Father Cancer Grandfather No problems noted. Grandmother Cancer Grandfather Cancer Surgical History History of surgery Social History Smoking Status: Never smoker substance use type: does not use ROS ROS ED ROS Narrative Constitutional: No fever, no chills. HEENT: No sore throat. No neck pain. No loss of vision. No rhinorrhea. Cardiovascular: No chest pain. No palpitations. No pedal edema. Respiratory: No cough, no shortness of breath. Abdominal: No abdominal pain. No nausea. No vomiting. Genitourinary: No dysuria. No hematuria. Vaginal bleeding with at 14 weeks gestation. Musculoskeletal: No myalgias. No arthralgias. Neurologic: No headaches. No dizziness. No lightheadedness. Skin: No rash. No change in color. EXAM Physical Exam Narrative Exam Narrative: Afebrile. Vital signs noted. HEENT: Normocephalic. Atraumatic. PERRL, EOMI. Neck soft and supple. No point tenderness or step off. Cardiovascular: Regular rate and rhythm with intermittent tachycardia. No murmurs, rubs, or gallops appreciated. Respiratory: No tachypnea. Lungs clear to auscultation bilaterally. Gastrointestinal: Abdomen soft, nontender, with normoactive bowel sounds. No rebound or guarding. Genitourinary: Chaperoned pelvic examination reveals small amount of blood in the vaginal vault with small clots. Os is closed. No cervical motion tenderness or adnexal tenderness, no pooling of blood in vaginal vault. Neurological: Awake. Alert. Nonfocal, nonlateralizing. Skin: No rash. Normal color. No pallor. Musculoskeletal: No pedal edema. Full range of motion extremities. Const Vital Signs: 01/06/24 23:14 Temperature 98.2 F Temperature Source Temporal Pulse Rate 109 H Respiratory Rate 18 Blood Pressure 114/77 Blood Pressure Mean 89 Pulse Ox 97 Oxygen Delivery Method Room Air MDM MDM MDM Narrative Medical decision making narrative: Differential diagnosis includes but not limited to subchorionic hemorrhage versus threatened miscarriage. I have low suspicion for vaginal laceration or UTI given the reported amount of bleeding. I reviewed her laboratory work and she has a normal white count of 7.4, hemoglobin 11.3 and stable, platelet count normal at 174. CMP is remarkable for a low creatinine of 0.46 and AST low at 11 with ALT normal at 19 and alk phos normal at 48. Blood type is O+. I reviewed the ultrasound/obstetric ultrasound and there is an SL IUP at 14 weeks ?2 days with appropriate amniotic fluid. heart rate of 162 bpm. There was noted small caudal subcentimeter venous wilburn noted. No evidence of subchorionic hemorrhage on radiology report. I discussed patient with the OPTOMECHANICAL ENGINEER on-call for [facility], Dr. Gentile. Patient will perform pelvic rest, and follow-up with her OPTOMECHANICAL ENGINEER as scheduled on January 20. She will return with increased bleeding, pelvic pain or cramping, new or worsening symptoms. Disposition is discharged home in stable condition. History & Record Review Discussion w/independent historian: Patient Lab Data Attestation: I reviewed the patient's lab results. Labs: Laboratory Results - last 24 hr 01/06/24 01/07/24 23:30 00:33 WBC 7.4 RBC 3.73 L Hgb 11.3 L Hct 33.7 L MCV 90.3 MCH 30.3 MCHC 33.5 RDW Std Deviation 42.1 RDW Coeff of Mariano 13.0 Plt Count 174 MPV 10.1 Immature Gran % (Auto) 0.300 Neut % (Auto) 63.1 Lymph % (Auto) 28.8 [place] % (Auto) 6.5 Eos % (Auto) 1.2 Baso % (Auto) 0.1 Absolute Neuts (auto) 4.7 Absolute Lymphs (auto) 2.13 Nucleated RBC % 0 Sodium 138 Potassium 3.7 Chloride 107 Carbon Dioxide 25.0 Anion Gap 6 BUN 9 Creatinine 0.46 L Est GFR (MDRD) Af Amer 217 Est GFR (MDRD) Non-Af 179 BUN/Creatinine Ratio 19.8 Glucose 96 Calcium 8.8 Total Bilirubin 0.20 AST 11 L ALT 19 Alkaline Phosphatase 48 Total Protein 6.5 Albumin 3.3 Globulin 3.2 Albumin/Globulin Ratio 1.0 Urine Color Yellow Urine Clarity Clear Urine pH 8.0 Ur Specific [place] 1.015 Urine Protein Negative Urine Glucose (UA) Normal Urine Ketones Negative Urine Occult Blood 250 H Urine Nitrite Negative Urine Bilirubin Negative Urine Urobilinogen Normal Ur Leukocyte Esterase 25 H Blood Type O POSITIVE Radiography Diagnostic Testing: Clinical Impression(s) from Imaging Studies Obstetrics Ultrasound 01/06/24 23:23 IMPRESSION: Single live intrauterine measuring at 14 weeks +2 days average ultrasound age. This gives estimated date of delivery by current ultrasound of 07/04/2024. Electronically Signed: Daniel Louis MD at 0:37 EDT , Management Discussion w/another healthcare provider: [facility] (Dr. Gentile, OPTOMECHANICAL ENGINEER) Discharge Plan Triage Chief Complaint: Vag Bld, Preg ED Provider: Kentrell Perez Dx/Rx/DC Orders Clinical Impression: Threatened miscarriage, Vaginal bleeding during Instructions: Vaginal Bleeding During , Miscarriage Threatened Prescriptions: No Action xajcqfll-zob-Mh-FA 1 mg Tablet 1 tab PO DAILY Primary Care Provider: Liliana Pollard Referrals: Kayce Gentile MD [Med Staff - Active Staff] - Keep Carol appointment Care Physician,No Primary [Non-Staff] - Activity Restrictions/Additional Instructions: Pelvic rest until cleared by your OPTOMECHANICAL ENGINEER. Keep your scheduled appointment for January 20. Return with increased bleeding, pelvic pain or pressure, new or worsening symptoms. Print Language: [place] Disposition Disposition: Home, Self Care
[2024-01-06 23:39] LABS: Absolute Lymphocyte Count 2.13 X10^3/uL (0.83-4.51); Absolute Neutrophil Count 4.7 X10^3/uL (2.0-7.7); Basophil# 0.01 X10^3/uL; Basophil% 0.1 % (0-1); Eosinophil# 0.09 X10^3/uL; Eosinophils% 1.2 % (0-5); Hematocrit 33.7 % (37-47); Hemoglobin 11.3 g/dL (12.0-15.0); Lymphocyte # 2.13 X10^3/ul (0.83-4.51); Lymphocyte % 28.8 % (19-41); Mean Corp Hgb Conc 33.5 g/dL (32-36); Mean Corpuscular Hgb 30.3 pg (27.0-32.0); Mean Corpuscular Volume 90.3 fL (81-99); Mean Platelet Vol. 10.1 fl (6.2-12.0); Monocyte# 0.48 X10^3/uL; Monocyte% 6.5 % (0-10); NRBC Flagged by Analyzer 0 % (0-5); Neutrophil # 4.66 X10^3/uL (2.7-7.7); Neutrophil % 63.1 % (47-70); Platelet Count 174 K/mm3 (150-450); RBC Distribution Width SD 42.1 fl (35.1-43.9); Red Blood Count 3.73 M/mm3 (4.2-5.4); White Blood Count 7.4 K/mm3 (4.4-11.0)
[2024-01-06 23:55] LABS: AST(SGOT) 11 U/L (15-37); Alanine Aminotransfer ALT/SGPT 19 U/L (13-56); Albumin, Serum 3.3 g/dL (3.2-5.0); Alkaline Phosphatase 48 U/L (45-117); Anion Gap 6 (5-15); BUN 9 mg/dL (7-18); BUN/Creat Ratio 19.8 RATIO (10-20); Calcium,Total 8.8 mg/dL (8.5-10.1); Chloride 107 mmol/L (98-107); Creatinine, Serum 0.46 mg/dL (0.55-1.02); EST Glomerular Filtration Rate 179 mL/min (>60); Est Glom Filt Rate - Afr Amer 217 mL/min (>60); Globulin 3.2 g/dL (2.2-4.2); Glucose 96 mg/dL (74-106); Potassium 3.7 mmol/L (3.5-5.1); Protein, Total 6.5 g/dL (6.4-8.2); Sodium Level 138 mmol/L (136-145)
[2024-01-07 00:38] LABS: Mucous, Urine 0 SEEN /hpf (<or=2+); Red Blood Cells-Urine 0 SEEN /hpf (0-5); Squamous Epithelial Cells - UA 0 SEEN /hpf (5-10)
[2024-01-07 00:46] LABS: Color, Urine Yellow (Yellow); Glucose, Dipstick Normal (Normal); Ketone-Dipstick Negative (Negative); Leukocyte Esterase-Dipstick 25 /ul (Negative); Nitrite-Dipstick Negative (Negative); Occult Blood-Urine 250 /ul (Negative); Protein-Dipstick Negative (Negative); Specific Gravity, Urine 1.015 (1.002-1.030); Urine Bilirubin Dipstick Negative (Negative); Urine Clarity Clear (Clear); Urine Urobilinogen Normal (Normal)
[2024-01-07 01:03] VITALS: BP 115/70; PULSE 81; RESP 16; TEMP 36.6; O2SAT 99
[2024-01-07 01:03] LABS: Bacteria RARE /hpf (None Seen); White Blood Cells 0-5 SEEN /hpf (0-5)
== END 2024-01-07 01:06 | disposition home or self-care (01) ==
PROVIDERS: Emergency Provider Emergency Medicine; PCP Advanced Practice Midwife; Visit Provider Emergency Medicine
DX: O20.0 Threatened abortion (principal); Z3A.14 14 weeks gestation of pregnancy
CPT/HCPCS: 76816; 80053; 81001; 85025; 86900; 86901; 99283; A4216

== ENCOUNTER 2024-06-29 07:05 | Inpatient (IN) | payer OTHER, SELFPAY ==
[2024-06-29] VITALS (37 sets, daily range): BP systolic 88–180; BP diastolic 48–121; PULSE 67–139; RESP 14–18; TEMP 36.2–36.9; O2SAT 95–100; BMI 26.9
[2024-06-29] MEDS: Lactated Ringers 1,000 ML 50 ML IV (07:50)
[2024-06-29] MEDS: Oxytocin 15 Units/NS 250ml 15 UNITS/250 ML IV.SOLN 2 UNITS IV (08:06)
[2024-06-29 08:17] LABS: Absolute Lymphocyte Count 1.77 X10^3/uL (0.83-4.51); Absolute Neutrophil Count 3.6 X10^3/uL (2.0-7.7); Basophil# 0.02 X10^3/uL; Basophil% 0.3 % (0-1); Eosinophils% 1.6 % (0-5); Hematocrit 31.9 % (37-47); Hemoglobin 10.5 g/dL (12.0-15.0); Lymphocyte # 1.77 X10^3/ul (0.83-4.51); Lymphocyte % 29.1 % (19-41); Mean Corp Hgb Conc 32.9 g/dL (32-36); Mean Corpuscular Hgb 29.2 pg (27.0-32.0); Mean Corpuscular Volume 88.9 fL (81-99); Mean Platelet Vol. 11.8 fl (6.2-12.0); Monocyte# 0.53 X10^3/uL; Monocyte% 8.7 % (0-10); NRBC Flagged by Analyzer 0 % (0-5); Neutrophil # 3.64 X10^3/uL (2.7-7.7); Neutrophil % 59.8 % (47-70); Platelet Count 155 K/mm3 (150-450); RBC Distribution Width CV 12.8 % (11.6-14.6); RBC Distribution Width SD 41.6 fl (35.1-43.9); Red Blood Count 3.59 M/mm3 (4.2-5.4); White Blood Count 6.1 K/mm3 (4.4-11.0)
[2024-06-29 09:15] LABS: Syphilis Antibodies Nonreactive (Nonreactive)
--- NOTE | 2024-06-29 11:39 | PCM.HP.OB ---
HPI - General General Date of Admission: 06/29/24 HPI Narrative ALEXEY PURVIS, is a 23 F at 39.3 weeks gestation who presents for an elective induction. [facility] Medical History (Updated 06/29/24 @ 11:44 by Luann Kaplan CNM) Asthma History of prior with IUGR Care and examination of lactating mother Allergy/AdvReac Type Severity Reaction Status Date / Time No Known Allergies Allergy Verified 06/29/24 07:36 Family History Father Cancer Grandfather No problems noted. Grandmother Cancer Grandfather Cancer Surgical History History of surgery Social History Smoking Status: Never smoker substance use type: does not use History Elective abortions Hx Para 1 Spontaneous abortions Hx # Term Pregnancies Ectopic pregnancies Hx # Pregnancies Multiple births # of living children NST FHR Rate Baby A Baseline: 140 Variability:: Moderate Accelerations:: 15 x 15 Decelerations:: None NST Reactive:: Yes FHR Category:: Category I Uterine Activity:: TOCO reading every 2-3 minutes ROS Eyes Eyes: Denies blurry vision, change in vision or spots in vision ENT HEENT: Denies dizziness or headache(s) Cardiovascular Cardiovascular: Denies abdominal pain, chest pain or dyspnea Respiratory/Chest Respiratory/Chest: Denies cough, dyspnea, shortness of breath at rest or shortness of breath with exertion Gastrointestinal Gastrointestinal: Denies abdominal pain, diarrhea or vomiting Genitourinary Genitourinary: Denies change in urinary stream, difficulty urinating or dysuria Musculoskeletal Musculoskeletal: Reports none Integumentary Integumentary: Denies rash Neurologic Neurologic: Denies dizziness, headache(s), memory loss or weakness Psychiatric Psychiatric: Reports none Vital Signs Vital Signs Vital Signs: 06/29/24 07:57 06/29/24 07:57 06/29/24 07:57 Temperature Temperature Source Pulse Rate 92 Respiratory Rate Blood Pressure 111/72 BP Systolic 111 BP Diastolic 72 Pulse Ox 98 06/29/24 07:57 06/29/24 07:57 06/29/24 07:57 Temperature Temperature Source Temporal Pulse Rate Respiratory Rate 16 Blood Pressure BP Systolic BP Diastolic Pulse Ox 98 06/29/24 07:57 06/29/24 10:45 06/29/24 10:45 Temperature 97.4 F L Temperature Source Temporal Pulse Rate 72 Respiratory Rate Blood Pressure BP Systolic BP Diastolic Pulse Ox 06/29/24 10:45 06/29/24 10:45 06/29/24 10:45 Temperature 97.2 F L Temperature Source Pulse Rate Respiratory Rate 16 Blood Pressure BP Systolic BP Diastolic Pulse Ox 99 06/29/24 10:46 06/29/24 10:46 06/29/24 11:29 Temperature Temperature Source Temporal Pulse Rate 76 Respiratory Rate Blood Pressure 109/55 L BP Systolic 109 BP Diastolic 55 Pulse Ox 06/29/24 11:29 06/29/24 11:29 06/29/24 11:29 Temperature Temperature Source Pulse Rate 67 Respiratory Rate 16 Blood Pressure 102/53 L BP Systolic 102 BP Diastolic 53 Pulse Ox 06/29/24 11:29 06/29/24 11:29 Temperature 97.3 F L Temperature Source Pulse Rate Respiratory Rate Blood Pressure BP Systolic BP Diastolic Pulse Ox 99 Weight Weight: 152 lb 1.903 oz Body Mass Index (BMI) 26.9 Physical Exam Const alert, oriented x3 and no apparent distress General Appearance: cooperative Orientation / Consciousness: awake Exam Limitations: no limitations HEENT normocephalic Head and Scalp: normal to inspection Eyes General Eye: normal appearance of both eyes Neck full ROM and no lymphadenopathy Lymph Lymphatic: no lymphadenopathy noted Chest inspection of chest normal Resp normal respiratory effort, normal air movement and clear to auscultation bilaterally Effort and Inspection: able to speak in complete sentences and symmetric chest movement Cardio regular rate and regular rhythm GI normal to inspection, nondistended, normoactive bowel sounds Manual OB Exam: presentation cephalic Back/Spine normal ROM Extremity full ROM and no calf tenderness Skin no rashes or lesions noted General Skin Exam: no breakdown Neuro oriented x3 and CN's II-XII intact bilaterally Psych mental status grossly normal and thought process normal Labs Labs Labs: Blood Type O POSITIVE Antibody Screen NEGATIVE Hct 31.9 % (37-47) L Hgb 10.5 g/dL (12.0-15.0) L Obstetrics Ultrasound Syphilis Total Ab Nonreactive (Nonreactive) Rhogam given: No Assessment & Plan (1) Exercise-induced asthma: (2) 39 weeks gestation of : (3) Encounter for elective induction of labor: PLAN: Plan CE 3.5/70/-3 AROM for small amount of clear fluid IUPC placed without difficulty Cat. 1 tracing Pitocin at 6 mu/min- continue to increase per policy Pain medications/epidural if indicated Anticipate Dr. Angeles updated and is collaborating physician
[2024-06-29] MEDS: Lactated Ringers 1,000 ML 999 ML IV (12:40)
[2024-06-29] MEDS: fentaNYL-bupivacaine (epidural) 100 ML BAG EPIDURAL (13:30)
[2024-06-29] MEDS: Lactated Ringers 1,000 ML 200 ML IV (13:56)
--- NOTE | 2024-06-29 17:43 | OB.VAGDELI_ITS ---
Assessment & Plan (1) (spontaneous vaginal delivery): (2) Care and examination of lactating mother: Maternal Data Information LUCILLE Calculator Estimated Delivery Date Method Current WG Current Estimate 07/03/24 Manual 39w 3d Vaginal Delivery Maternal Presentation Maternal Presentation: Elective Induction Maternal Presentation: at 39.9 weeks gestation for an elective induction Type of Induction: Pitocin and Amniotomy Vaginal Delivery Information Procedure Performed: Spontaneous Vaginal Delivery Surgeon/Practitioner: Luann Kaplan Pre-Procedure Diagnosis: Term gestation, elective induction of labor Post-Procedure Diagnosis: , Live male infant Type of anesthesia: Epidural Estimated Blood Loss: 100 Time of Delivery: 17:29 Findings Description of procedure: Patient progressed to complete dilation. With good maternal effort, head delivered followed by anterior shoulder and remainder of infant body without any force, delay, or traction. Loose cord around neck easily reduced. Vigorous male was delivered atraumatically and placed on maternal abdomen. Pitocin IV started for active management of the third stage of labor. 3 vessel cord clamped and cut after delay and infant placed immediately skin to skin with patient. Placenta delivered spontaneously and intact. After inspection, vagina and perineum are intact. Vaginal sweep performed. Fundus is firm 2 below U and bleeding is hemostatic. Sponge and sharps counts correct. Patient and infant bonding well at this time. Dr. Angeles notified of delivery. Routine post orders placed. Presentation: Vertex Amniotic Membrane Rupture Type: Artificial Amniotic Fluid Description: Clear Placental Delivery Description: Spontaneous Placenta Disposition: [facility] Specimen collected: No Cord Vessel Description: 3 Vessels Cord Entanglement: Around neck x 1, loose Nuchal Cord Compression: Without compression Infant A Gender: Male (1 minute): 8 (5 minute): 9 Delayed Cord Clamping: Yes E Commerce Architect pointing machine operator: No Post Vaginal Deli Medications given after delivery: IV Pitocin Episiotomy Description: None Laceration: None Complication Complications: No
[2024-06-29] MEDS: Oxytocin 15 Units/NS 250ml 15 UNITS/250 ML IV.SOLN 83 UNITS IV (18:31)
[2024-06-30] VITALS (7 sets, daily range): BP systolic 116–127; BP diastolic 57–63; PULSE 77–97; RESP 14–16; TEMP 36.4–36.9; O2SAT 96–98
--- NOTE | 2024-06-30 07:10 | PCM.DC.SUM ---
Providers Date of Admission: 06/29/24 Primary Care Physician: No Primary Care Phys Reason For Visit: VAGINAL DELIVERY Diagnosis Discharge Diagnosis (1) (spontaneous vaginal delivery): Status: Acute Code(s): O80 - Encounter for full-term uncomplicated delivery (2) Care and examination of lactating mother: Status: Acute Code(s): Z39.1 - Encounter for care and examination of lactating mother Plan CE 3.5/70/-3 AROM for small amount of clear fluid IUPC placed without difficulty Cat. 1 tracing Pitocin at 6 mu/min- continue to increase per policy Pain medications/epidural if indicated Anticipate Dr. Angeles updated and is collaborating physician Medications at Discharge Home Medications acetaminophen 500 mg tablet 1,000 mg (2 x 500 mg) PO Q6H PRN PRN Pain 1-10 Or Fever #0 tabs 06/30/24 ibuprofen 600 mg tablet 600 mg PO Q6H PRN PRN Pain Score 1-10 #0 tabs 06/30/24 Hospital Course Operations None Procedures None Summary of Care Provided Minutes Spent on Discharge: 15 Hospital Course: Patient had vaginal delivery. Hospital course was uneventful. Physical Exam Narrative Patient seen at bedside. Denies pain. Ambulating and voiding without difficulty. Lochia decreased. Desires discharge home today. Const alert and oriented x3 General Appearance: Negative for in distress HEENT normocephalic Eyes General Eye: normal appearance of both eyes Neck General: normal visual inspection Chest Chest: symmetrical chest wall rise Resp normal respiratory effort and normal air movement Effort and Inspection: symmetric chest movement; Negative for tachypneic Auscultation: clear to auscultation bilaterally Cardio regular rate and regular rhythm Peripheral Pulses: pulses 2+ throughout GI normal to inspection, nondistended, normoactive bowel sounds Narrative: Ice to perineum OB / External & Speculum: vaginal bleeding and other Lochia decreasing Uterus Palpation: uterus fundus firm (Below U) Extremity normal to inspection, full ROM and normal capillary refill Skin no rashes or lesions noted Neuro oriented x3, CN's II-XII intact bilaterally and gait normal Psych mental status grossly normal, thought process normal and activity/motor behavior normal Weight / BMI Weight Weight: 152 lb 1.903 oz Body Mass Index (BMI) 26.9 ABG / Lab / Microbiology Data 06/29/24 07:50 Laboratory: Laboratory Results - last 24 hr 06/29/24 07:50: WBC 6.1, RBC 3.59 L, Hgb 10.5 L, Hct 31.9 L, MCV 88.9, MCH 29.2, MCHC 32.9, RDW Std Deviation 41.6, RDW Coeff of Mariano 12.8, Plt Count 155, MPV 11.8, Immature Gran % (Auto) 0.500, Neut % (Auto) 59.8, Lymph % (Auto) 29.1, Glasscock % (Auto) 8.7, Eos % (Auto) 1.6, Baso % (Auto) 0.3, Absolute Neuts (auto) 3.6, Absolute Lymphs (auto) 1.77, Nucleated RBC % 0, Syphilis Total Ab Nonreactive, Blood Type O POSITIVE, Antibody Screen NEGATIVE D/C Instructions Discharge Diet: No restrictions Discharge Activity: Return to Normal Activity, No Restrictions, May Drive, May Shower and May Take a Tub Bath (Warm water only. No bath salts, soaps, bubbles) May resume sexual activity in: 6-8 weeks Weight Bearing Status: Weight bearing as tolerated Call your doctor if you observe: Fever of 101 or Higher, Inability to urinate, Using more than 1 pad per hour, Shortness of breath, Dizziness, Chest pain, Calf discomfort and Uncontrolled pain DC O2, CPAP, BIPAP Needs Home O2 Discharge instructions: No Please Follow Up With: [facility] Bhupinder LORENZANA When: 2 weeks in office or virtual Meaningful Use Info Meaningful Use Meaningful Use Diagnoses (Choose all that apply): None applicable Ischemic Stroke Statin Dosing Therapy Reference: STATIN DOSE THERAPY REFERENCE: * Patients > 75 years receive moderate or high dose statin therapy. * Patients 75 years or YOUNGER should receive HIGH intensity statin dose unless contraindicated. You will be required to document reason for non-treatment if statin daily dose does not meet guidelines. HIGH DOSE STATIN THERAPY DAILY Atorvastatin > than or = to 40 mg Rosuvastatin > than or = to 20 mg Amlodipine + Atorvastatin > than or = to 2.5/40 mg Ezetimibe + Simvastatin 10/80 mg Simvastatin 80mg Discharge Plan Admission Admit Date/Time: 06/29/24 07:05 Primary Reason for Your Visit: Labor and Delivery Attending Provider: Luann Kaplan Primary Care Provider: Care Physician,No Primary Discharge Orders/Prescriptions Prescriptions: New acetaminophen 500 mg Tablet 1,000 mg PO Q6H PRN PRN (Reason: Pain 1-10 Or Fever) Qty: 0 0RF ibuprofen 600 mg Tablet 600 mg PO Q6H PRN PRN (Reason: Pain Score 1-10) Qty: 0 0RF Referrals / Follow Up: Luann Kaplan CNM [Med Staff - Adv Practice Prof] - Care Physician,No Primary [Primary Care Provider] - Disposition Disposition (needs filled in before D/C Order can be placed): Home, Self Care
[2024-06-30] MEDS: Ibuprofen 600 MG Tablet PO (07:12)
--- NOTE | 2024-07-05 14:13 | NURSING ---
Follow up phone call done, no answer, voicemail left
== END 2024-06-30 18:15 | disposition home or self-care (01) | DRG 807 ==
PROVIDERS: Admitting Provider Advanced Practice Midwife; Visit Provider Advanced Practice Midwife
DX: O99.52 Diseases of the respiratory system complicating childbirth (principal); Z37.0 Single live birth; J45.990 Exercise induced bronchospasm; O69.81X0 Labor and delivery complicated by cord around neck, without compression, not applicable or unspecified; Z3A.39 39 weeks gestation of pregnancy
CPT/HCPCS: 59025; 59050; 85025; 86780; 86850; 86900; 86901